=== PATIENT | male | born 1945 | race Caucasian/White ===

== ENCOUNTER 2016-12-03 06:24 | Day surgery (SDC) | payer MEDICARE, OTHER ==
[2016-12-02 10:43] LABS: BASOPHILS 0.5 % (0-2); EOSINOPHILS 2.5 % (0-7); HEMATOCRIT 43.3 % (42.0-54.0); HEMOGLOBIN 14.4 g/dL (13.5-17.5); IMMATURE GRANULOCYTES 0.3 % (0-5); LYMPHOCYTES 23.4 % (15-50); MCH 31.1 pg (26.0-34.0); MCHC 33.3 g/dL (31.0-37.0); MCV 93.5 fL (80.0-100.0); MEAN PLATELET VOLUME 10.4 fL (7.4-10.4); NEUTROPHILS 66.3 % (40-80); PLATELET COUNT 155 10x3/uL (130-400); RBC 4.63 10x6/uL (4.20-6.10); RDW 13.3 % (11.5-14.5); WBC 7.7 10x3/uL (4.8-10.8)
[2016-12-02 11:02] LABS: APTT 28.6 SECONDS (22.8-39.4); INR 1.01 (0.85-1.17); PROTIME 13.1 SECONDS (11.6-15.0)
[2016-12-02 11:10] LABS: CALC OSMOLALITY 288 mosm/kg (275-300); CALCIUM 8.4 mg/dL (8.5-10.1); CARBON DIOXIDE 26.9 mmol/L (21.0-32.0); CHLORIDE - SERUM 107 mmol/L (98-107); GLUCOSE 101 mg/dL (74-106); SODIUM 143 mmol/L (136-145); UREA NITROGEN 25 mg/dL (7-18); eGFR NON AFRICAN AMERICAN 78 mL/min (90-120)
[~2016-12-03] VITALS: Ht 177.8 cm; Wt 106.1 kg
[~2016-12-03 06:24] MED LIST: ASTELIN137 MCG NS; BENICAR HCT 40-1 TAB PO; CIALIS5 MG PO; CIPRO500 MG PO; COUMADIN5 MG PO; DILAUDID4 MG PO; FLOVENT DI50 MCG/DIS INH; FLUTICASONE PRO16 GM NASAL; KLOR-CON M2020 MEQ PO; MIRALAX527 GM PO; NAPROSYN500 MG PO; NORVASC2.5 MG PO; NORVASC5 MG PO; PERCOCET 10/3251 TA1 PO; PRILOSEC20 MG PO; PROAIR HFA8.5 GM INH; SORINE80 MG PO; SYMBICORT 16010.2 GM INH; SYMBICORT 80-10.2 GM INH; TRIMETHOPRIM100 MG PO; ZYLOPRIM100 MG PO
[2016-12-03 07:42] VITALS: BP 120/77; Ht 177.8 cm; Wt 106.1 kg
--- NOTE | 2016-12-04 08:58 | OP ---
PATIENT NAME: PRASHANTH LEIJA MEDICAL RECORD: [id number] :45 LOCATION:D.[facility] ADMISSION DATE: SURGEON: DENNYS OLGUIN MD DATE OF OPERATION: 12/03/2016 SURGEON: Dennys Olguin MD ANESTHESIA: TIVA by Vincent Ball CRNA. PREOPERATIVE DIAGNOSIS: Obstructive benign prostatic hyperplasia, elevated PSA 7.7. POSTOPERATIVE DIAGNOSIS: Obstructive benign prostatic hyperplasia, elevated PSA 7.7. PROCEDURES: Cystoscopy, transrectal ultrasound and prostate biopsy. FINDINGS: On cystoscopy, trilobar hyperplasia of the prostate, which is obstructive. Single ureteral orifices bilaterally. No bladder tumors. Trabeculated bladder. On transrectal ultrasound, 48 gram prostate with no hypoechoic areas. SPECIMENS: Prostate biopsy cores. ESTIMATED BLOOD LOSS: Minimal. CLINICAL HISTORY: This is a 71-year-old male, who has a history of elevated PSA. About 15 years ago, he had a prostate biopsy by Dr. Kimble and was diagnosed with chronic prostatitis. He continues to have an elevated PSA of 7.7 and now he has issues with obstructive voiding symptoms including slow urine flow. We are performing cystoscopy and transrectal ultrasound and prostate biopsy today. HE IS ALLERGIC TO SULFA AND HYDROCODONE. We gave him Levaquin 500 mg IV pension consultant to the OR. DESCRIPTION OF PROCEDURE: The patient was given IV sedation. He was then placed in the dorsal lithotomy position and prepped and draped. A 17-Italian cystoscope with 30-degree lens was used for visualization. Cystoscopic findings are as outlined above. The prostatic lobes, lateral lobes do meet in the midline and they are obstructive. The scope was then removed and the bladder was emptied through the scope sheath. We then placed a transrectal probe into the rectum. Prostate size measurements were obtained and the prostate size was approximately 48 grams. We then took needle biopsies using a 21-gauge biopsy gun. The prostate was divided into 6 sectors with 3 sectors on each side. These are the left and right apical, mid, and base sectors. On each of these sectors at least 3 cores were obtained. Once these specimens were obtained, the procedure was terminated and the patient was awakened and brought to the recovery room. I will see him in 1 week's time to review the pathology with him. TRANSINT:[id number] Voice Confirmation ID: [id number] DOCUMENT ID: [id number] OPERATIVE REPORT [id number] PRASHANTH LEIJA ROBERT S MD at 0858 CC: [id number] DICTATION DATE: 12/03/16 1012 DRYING OVEN ATTENDANT: 12/03/16 1733 [facility] 12/03/16 [id number] [place] [address]
== END 2016-12-03 11:05 | disposition home or self-care (01) ==
LOC: D.OPS 06:24 → D.PAN 09:00 → D.OPS 11:05
PROVIDERS: Anesthesiology
DX: N40.1 Benign prostatic hyperplasia with lower urinary tract symptoms (principal); N13.8 Other obstructive and reflux uropathy; Z01.812 Encounter for preprocedural laboratory examination

== ENCOUNTER → 2017-05-27 08:31 | Outpatient (CLI) | payer MEDICARE, OTHER ==
[2016-12-03 07:42] VITALS: BMI 33.6
== END | disposition home or self-care (01) ==
LOC: D.LABREF 08:31
DX: M17.12 Unilateral primary osteoarthritis, left knee (principal); Z11.8 Encounter for screening for other infectious and parasitic diseases

== ENCOUNTER 2017-06-02 10:00 | Inpatient (IN) | payer MEDICARE, OTHER ==
[~2017-06-02] VITALS: Ht 177.8 cm; Wt 103.2 kg
--- NOTE | ~2017-06-02 | OP ---
PATIENT NAME: PRASHANTH LEIJA MEDICAL RECORD: [id number] :45 LOCATION:D[facility] ADMISSION DATE:06/07/17 SURGEON: ELINA ISLAS MD DATE OF OPERATION: 06/07/2017 PREOPERATIVE DIAGNOSIS: Severe degenerative arthritis of the left knee. POSTOPERATIVE DIAGNOSIS: Severe degenerative arthritis of the left knee. PROCEDURE: Left total knee arthroplasty. SURGEON: Elina Islas MD ANESTHESIA: General. INTRAOPERATIVE COMPLICATIONS: None. SUMMARY OF PATHOLOGIC FINDINGS: Extensive tricompartmental osteoarthritis consistent with the preoperative radiographs. IMPLANTS USED: Sarahi Triathlon total knee arthroplasty, size 6 distal femur, size 6 tibial baseplate, size 6 x 9 polyethylene insert, size 39 mm x 11 symmetric polyethylene, cemented components, Vitagel was used at the end of case. OPERATIVE SUMMARY IN DETAIL: After obtaining the appropriate preoperative orthopedic surgery consent as well as anesthetic consultation, evaluation and clearance, the patient was brought onto the operating table in supine position. After adequate general laryngeal mask was administered, tourniquet was placed about the proximal aspect of the left lower extremity. Left lower extremity was then prepped and draped in routine sterile fashion. The leg was elevated and exsanguinated, tourniquet inflated to 350 mmHg. A midline incision was taken down for paramedian arthrotomy. Patella was everted, distal femur was exposed. Soft tissue excision was done in the usual fashion. Distal intramedullary guide yunior was placed for distal intramedullary guided cuts. Distal femoral cut was made followed by intramedullary guided proximal tibial cut. Proximal tibial cut was made. Measurements were taken and distal femoral chamfer cuts were made. Having completed these trials corresponding to the above-mentioned implants were put into place, taken through range of motion and found to be stable in all planes. Final distal femoral and proximal tibial preparations were then followed by excision of the arthritic surface of the patella. Patella was then made ready for final implantation. The wound was copiously irrigated and dried. Final components were cemented into place. All cement was allowed to harden after all excess cement had been removed, the knee was then taken through range of motion and found to be stable in all planes. The cavity was then sprayed with Vitagel. Paramedian arthrotomy was closed with #2 Ethibond, followed by #1 Vicryl, 2-0 Vicryl, and skin lori. Sterile dressings were applied. The patient was awakened, taken to the recovery in stable condition. All final needle and sponge counts were correct. TRANSINT:[id number] Voice Confirmation ID: [id number] DOCUMENT ID: [id number] OPERATIVE REPORT [id number] PRASHANTH LEIJA MD, ELINA HOLLY at 1307 CC: [id number] DICTATION DATE: 06/07/17 154 PHLEBOTOMY DIRECTOR: 06/07/172041 DIS IN 06/09/17 [address] [place] [address]
[2017-06-02] MEDS ORDERED: ALDACTONE25 MG PO (10:22)
[2017-06-02] MEDS ORDERED: NORVASC5 MG PO (10:23)
[2017-06-02] MEDS ORDERED: FLOMAX0.4 MG PO (10:24)
[2017-06-02] MEDS ORDERED: GEMFIBROZIL600 MG PO (10:25)
[2017-06-02 11:13] LABS: BASOPHILS 0.4 % (0-2); EOSINOPHILS 2.3 % (0-7); HEMATOCRIT 44.8 % (42.0-54.0); HEMOGLOBIN 14.7 g/dL (13.5-17.5); IMMATURE GRANULOCYTES 0.1 % (0-5); MCH 31.4 pg (26.0-34.0); MCHC 32.8 g/dL (31.0-37.0); MCV 95.7 fL (80.0-100.0); MEAN PLATELET VOLUME 10.5 fL (7.4-10.4); MONOCYTES 9.3 % (2-11); NEUTROPHILS 63.9 % (40-80); PLATELET COUNT 159 10x3/uL (130-400); RBC 4.68 10x6/uL (4.20-6.10); RDW 13.2 % (11.5-14.5); WBC 7.4 10x3/uL (4.8-10.8)
[2017-06-02 11:44] LABS: ANION GAP 14.4 mmol/L (8-16); CALCIUM 8.6 mg/dL (8.5-10.1); CARBON DIOXIDE 25.8 mmol/L (21.0-32.0); CREATININE - SERUM 1.2 mg/dL (0.6-1.3); POTASSIUM - SERUM 4.2 mmol/L (3.5-5.1)
[2017-06-02 11:48] LABS: APPEARANCE CLEAR (CLEAR); BILIRUBIN NEGATIVE (NEGATIVE); COLOR YELLOW (YELLOW); EPITHELIAL CELLS 0-5 /hpf (0-5); GLUCOSE NEGATIVE (NEGATIVE); KETONE NEGATIVE (NEGATIVE); NITRITE NEGATIVE (NEGATIVE); PROTEIN NEGATIVE (NEGATIVE); SPECIFIC GRAVITY 1.015 (1.005-1.020); UROBILINOGEN NORMAL (NORMAL)
[2017-06-02 11:50] LABS: APTT 30.4 SECONDS (22.8-39.4); INR 1.02 (0.85-1.17)
[2017-06-02 11:53] LABS: MUCUS <1+ /lpf (NONE SEEN); RED CELLS - URINE 0-5 /hpf (0-5)
[2017-06-02 11:54] LABS: BACTERIA MODERATE /hpf (NONE SEEN)
[2017-06-07] VITALS (7 sets, daily range): BP systolic 118–141; BP diastolic 77–105; Ht 177.8 cm; Wt 103.2 kg
[2017-06-08 04:00] VITALS: BP 130/78
[2017-06-08 05:20] LABS: HEMATOCRIT 38.2 % (42.0-54.0); HEMOGLOBIN 12.4 g/dL (13.5-17.5); MCH 30.8 pg (26.0-34.0); MCHC 32.5 g/dL (31.0-37.0); MCV 94.8 fL (80.0-100.0); MEAN PLATELET VOLUME 10.7 fL (7.4-10.4); RBC 4.03 10x6/uL (4.20-6.10); WBC 10.9 10x3/uL (4.8-10.8)
[2017-06-08 08:30] VITALS: BP 121/75
[2017-06-08 15:40] VITALS: BP 101/63
[2017-06-08 20:00] VITALS: BP 111/64
[2017-06-09 04:00] VITALS: BP 111/74
[2017-06-09 04:32] LABS: HEMATOCRIT 34.4 % (42.0-54.0); HEMOGLOBIN 11.4 g/dL (13.5-17.5); MCHC 33.1 g/dL (31.0-37.0); MCV 93.5 fL (80.0-100.0); MEAN PLATELET VOLUME 10.4 fL (7.4-10.4); RBC 3.68 10x6/uL (4.20-6.10); WBC 10.6 10x3/uL (4.8-10.8)
[2017-06-09] MEDS ORDERED: PERCOCET 10/3251 TA1 PO (07:59)
[2017-06-09] MEDS ORDERED: ELIQUIS2.5 MG PO (08:00)
[2017-06-09 08:28] VITALS: BP 108/69
== END 2017-06-09 15:17 | disposition home or self-care (01) | DRG 470 ==
LOC: D.SDCHOLD 10:00 → D.MS 06-07 16:31 → D.SDCHOLD 06-08 10:30 → D.MS 06-08 10:30
PROVIDERS: Orthopaedic Surgery
PROC: 0SRD0JZ Replacement of Left Knee Joint with Synthetic Substitute, Open Approach (ICD-10-PCS; principal; 2017-06-07 12:15)
DX: M17.12 Unilateral primary osteoarthritis, left knee (principal); I10 Essential (primary) hypertension; K21.9 Gastro-esophageal reflux disease without esophagitis; I48.2 Chronic atrial fibrillation; I34.1 Nonrheumatic mitral (valve) prolapse; Z95.0 Presence of cardiac pacemaker

== ENCOUNTER → 2017-06-03 12:53 | Outpatient (CLI) | payer MEDICARE, OTHER ==
[2016-12-03 07:42] VITALS: BMI 33.6
[~2017-06-03 12:53] MED LIST changes: +ALDACTONE25 MG PO; +FLOMAX0.4 MG PO; +GEMFIBROZIL600 MG PO
== END | disposition home or self-care (01) ==
LOC: D.MAMMO 09:00
DX: N64.4 Mastodynia (principal); N60.01 Solitary cyst of right breast; N60.02 Solitary cyst of left breast

== ENCOUNTER 2017-10-22 08:28 | Outpatient (CLI) | payer MEDICARE, OTHER ==
[~2017-10-22] VITALS: Ht 177.8 cm; Wt 103.6 kg
--- NOTE | ~2017-10-22 | HEMODYNAMI ---
PATIENT:PRASHANTH LEIJA MEDICAL RECORD: [id number] : 45 LOCATION:[facility] ADMISSION DATE: 10/22/17 Generatedon:10/22/201714:15 Patient name: PRASHANTH LEIJA Patient #: [id number] SSN: : 1945 Date of study: 10/22/2017 Page: Of Hemodynamic Procedure Report Patient Data Patient Demographics Procedure consent was obtained First Name: PRASHANTH Gender: Male Last Name: LISS : 1945 [facility] Initial: L Age: 72 year(s) Patient #: [id number] Race: Unknown Additional ID: [id number] Contact details [address]: [address] [place] [address] State: [place] City: [place] Zip code: [address] Past Medical History Allergies Allergen Reaction Date Comments Reported Sulfa drugs 10/22/2017 Other allergy 10/22/2017 hydrocodone Admission Admission Data Admission Date: 10/22/2017 Admission Time: 8:28 Procedure Procedure Types Cath Procedure Diagnostic Procedure LHC LHC w/Coronaries Procedure Description Procedure Date Procedure Date: 10/22/2017 Procedure Start Time: 14:07 Procedure End Time: 14:12 Procedure Staff Name Function Danial Bhakta MD Performing Physician Radha Claros RT Monitor Rivera Delacruz RN Nurse Aye Montelongo RT Scrub Procedure Data Cath Procedure Fluoroscopy Diagnostic fluoroscopy Total fluoroscopy Time: 1 time: 1 min min Diagnostic fluoroscopy Total fluoroscopy dose: 783 dose: 783 mGy mGy Contrast Material Contrast Material Type Amount (ml) Isovue 300 61 Entry Location Entry Primary Successful Side Size Upsize Upsize Entry Closure Davalos ccessful Closure Location (Fr) 1 (Fr) 2 (Fr) Remarks Device Remarks Radial Right 6 Fr Mechanical artery Short Compression Estimated blood loss: 5 ml Diagnostic catheters Device Type Used For End Catheter Placement DIAGNOSTIC [place] 110cm 5 Multi-vessel Fr catheter ([id number]) Angiography Procedure Complications No complications Procedure Medications Medication Administration Route Dosage 0.9% NaCl I.V. 100 ml/hr Oxygen etCO2 Nasal cannula 2 l/min Heparin Flush Bag added to field 2 bags (1000units/500ml NS) Lidocaine 2% added to field 20 Versed I.V. 2 mg Fentanyl I.V. 100 mcg Radial Cocktail I.A. 1 syringe (Verapomil 2mg/Nitro 400mcg/Heparin 1500units) Versed I.V. 1 mg Radial Cocktail added to field 1 syringe (Verapomil 2mg/Nitro 400mcg/Heparin 1500units) Hemodynamics Rest Heart Rate: 60 (bpm) Pressure Samples Time Site Value (mmHg) Purpose Heart Use Rate(bpm) 14:08 LV 66/12,12 Snapshot 60 Snapshots Pre Cath Intra NCS Post Cath Vital Signs Time Heart Resp SPO2 etCO2 NIBP Rhythm Pain Sedation Rate (ipm) (%) (mmHg) (mmHg) Status Level (bpm) 13:31:30 60 18 98 32.9 129/80(97) NSR 0 (11) 10(A) , No pain 13:36:10 61 13 99 0 113/71(85) NSR 0 (11) 10(A) , No pain 13:40:51 60 13 97 19.4 111/65(86) NSR 0 (11) 10(A) , No pain 13:45:32 60 19 96 32.9 111/69(86) NSR 0 (11) 10(A) , No pain 13:50:10 60 17 96 32.9 111/70(86) NSR 0 (11) 10(A) , No pain 13:54:51 60 18 96 32.9 120/73(91) NSR 0 (11) 10(A) , No pain 13:59:31 60 12 96 27.7 112/59(87) NSR 0 (11) 10(A) , No pain 14:04:12 60 12 94 24.7 103/62(85) NSR 0 (11) 10(A) , No pain 14:08:53 60 15 96 35.2 111/57(80) NSR 0 (11) 10(A) , No pain Medications Time Medication Route Dose Verified Delivered Reason Notes Effectiveness by by 13:29:40 0.9% NaCl I.V. 100 Rivera Rivera Per ml/hr Nubia Delacruz physician RN RN 13:29:51 Oxygen etCO2 2 l/min Rivera Rviera Per Nasal Nubia Delacruz physician cannula RN RN 13:30:03 Heparin Flush added 2 bags Rivera Rivera used for Bag to Nubia Delacruz procedure (1000units/500ml field RN RN NS) 13:30:16 Lidocaine 2% added 20ml Rivera Rivera for local to vial Lorigan Nubia anesthetic RN RN 13:30:51 Radial Cocktail added 1 Rivera Rivera used for (Verapomil to syringe Nubia Delacruz procedure 2mg/Nitro field GAN RN 400mcg/Heparin 1500units) 14:03:32 Versed I.V. 2 mg Rivera Rivera for sedation Nubia Delacruz RN RN 14:03:45 Fentanyl I.V. 100 mcg Rivera Rivera for sedation Nubia Delacruz RN RN 14:07:21 Radial Cocktail I.A. 1 Rivera Danial for (Verapomil syringe Lorigan Taurandolph MD vasodilation 2mg/Nitro RN 400mcg/Heparin 1500units) 14:07:29 Versed I.V. 1 mg Rivera Rivera for sedation Nubia Delacruz RN railroad signal technician Log Time Note 13:18:41 Rivera Delacruz RN sent for patient. Start room use. 13:18:41 Time tracking: Regular hours (M-F 7:00 - 5:00) 13:18:45 Plan of Care:Hemodynamics will remain stable., Cardiac rhythm will remain stable., Comfort level will be maintained., Respiratory function will remain adequate., Patient/ family verbilizes understanding of procedure., Procedure tolerated without complication., Recovers from procedure without complications.. 13:19:55 Patient received from Pre/Post Procedure Room to CCL 1 Alert and oriented. Tansferred to table in Supine position. 13:19:56 Warm blankets applied, and sveta hugger turned on for patient comfort. 13:19:56 Correct patient and procedure confirmed by team. 13:19:57 Signed procedure consent form obtained from patient. 13:19:58 ECG and BP/O2 sat monitors applied to patient. 13:19:59 Full Disclosure recording started 13:29:40 0.9% NaCl 100 ml/hr I.V. was administered by Rivera Delacruz RN; Per physician; 13:29:51 Oxygen 2 l/min etCO2 Nasal cannula was administered by Rivera Lorigan RN; Per physician; 13:30:03 Heparin Flush Bag (1000units/500ml NS) 2 bags added to field was administered by Rivera Delacruz RN; used for procedure; 13:30:16 Lidocaine 2% 20ml vial added to field was administered by Rivera Delacruz RN; for local anesthetic; 13:30:36 Vital chart was started 13:30:51 Radial Cocktail (Verapomil 2mg/Nitro 400mcg/Heparin 1500units) 1 syringe added to field was administered by Rivera Delacruz RN; used for procedure; 13:32:15 Baseline sample Acquired. 13:32:20 Rhythm: paced 13:32:28 H&P Date Dictated: 10/12/2017 Within 30 days and on chart., H&P Addendum completed by physician on day of procedure. (MUST COMPLETE FOR ALL OUTPATIENTS). 13:32:30 Pre-procedure instructions explained to patient. 13:32:30 Pre-op teaching completed and patient verbalized understanding. 13:32:55 Family in patients room. 13:32:56 Patient NPO since Midnight. 13:33:06 Patient allergic to Sulfa drugs 13:33:18 Patient allergic to Other allergyhydrocodone 13:34:01 Is the patient allergic to Iodine/contrast media? No. 13:34:03 Was the patient premedicated? No 13:34:05 Is patient on blood thinner?Yes 13:34:09 ACC The patient was administered the following blood thiners within the last 24 hours: ACCPlavix 13:34:11 Patient diabetic? No. 13:34:14 Previous problem with sedation/anesthesia? No ? 13:34:15 Snore? Yes 13:34:16 Sleep apnea? Yes 13:34:17 Deviated septum? No 13:34:18 Opens mouth fully? Yes 13:34:19 Sticks out tongue? Yes 13:34:25 Airway obstruction? Yes asthma 13:34:29 Dentures? No ? 13:34:32 Pre procedure: right dorsailis pedis pulse 2+ Normal; easily identifiable; not easily obliterated 13:34:35 Pre procedure: left dorsailis pedis pulse 2+ Normal; easily identifiable; not easily obliterated 13:34:37 Patient pain scale 0/10 ?. 13:34:53 IV patent on arrival in left forearm with 0.9% NaCl at KVO. 13:34:56 Lab results completed and on chart. 13:35:02 Right Radial area was prepped with chlora-prep and draped in sterile fashion 13:35:04 Alarms reviewed by R. N. 13:35:04 Sharps counted by scrub and verified by R.N. 14:02:57 Physician arrived 14::58 --------ALL STOP TIME OUT------ 14::58 Final Timeout: patient, procedure, and site verified with staff and physician. All members of the team are in agreement. 14:03:03 Right Radial & Right Groin site verified by team. 14:03:05 Physical assessment completed. ASA score P 2 - A patient with mild systemic disease as per Danial Bhakta MD. 14:03:09 Sedation plan: IV Moderate Sedation Medication:Versed, Fentanyl 14:03:32 Versed 2 mg I.V. was administered by Rivera Delacruz RN; for sedation; 14:03:34 Use device set Radial Dx or PCI 14:03:35 ACIST Syringe (46031) opened to sterile field. 14:03:35 Medline Cath Pack ([id number]) opened to sterile field. 14:03:35 Bag Decanter (2002S) opened to sterile field. 14:03:36 DIAGNOSTIC WIRE .035 260cm J wire (405374) opened to sterile field. 14:03:36 ACIST Hand Control (03264) opened to sterile field. 14:03:37 ACIST Manifold (93899) opened to sterile field. 14:03:37 Tegaderm 4 x 4 (1626W) opened to sterile field. 14:03:39 SHEATH 6Fr Prelude Radial ([id number]) opened to sterile field. 14:03:41 MBrace Wrist Support ([id number]) opened to sterile field. 14:03:45 Fentanyl 100 mcg I.V. was administered by Rivera Delacruz RN; for sedation; 14:07:06 Procedure started. 14:07:15 Local anesthetic to right radial artery with Lidocaine 2% by Danial Bhakta MD.INITIAL ACCESS ONLY 14:07:21 Radial Cocktail (Verapomil 2mg/Nitro 400mcg/Heparin 1500units) 1 syringe I.A. was administered by Danial Bhakta MD; for vasodilation; 14:07:26 A 6 Fr Short sheath was inserted into the Right Radial artery 14:07:29 Versed 1 mg I.V. was administered by Rivera Delacruz RN; for sedation; 14:07:43 A DIAGNOSTIC [place] 110cm 5 Fr catheter (843011) was advanced over the wire and used for Multi-vessel Angiography. 14:08:44 LV hemodynamics recorded. 14:08:45 LV gram done using CRONIN 14:08:48 Injector settings: Ml/sec: 5, Volume: 15, 14:08:54 EF : 60 % 14:09:13 LCA angiography performed. 14:09:17 Injector settings: Ml/sec: 3, Volume: 6, 14:10:43 RCA angiography performed. 14:10:56 Injector settings: Ml/sec: 3, Volume: 6, 14:11:09 Catheter removed. 14:11:12 TR BAND Large ([id number]) opened to sterile field. 14:11:22 Sheath removed intact; hemostasis achieved with Mechanical Compression to the Right Radial artery. 14:11:24 Procedure ended.(Physican Out) 14:11:59 Fluoroscopy time 01.00 minutes. 14:12:04 Fluoroscopy dose: 783 mGy 14:12:04 Flurop Dose total: 783 14:12:08 Contrast amount:Isovue 300 61ml. 14:12:10 Sharps counted by scrub and verified by R.N. 14:12:10 Insertion/operative site no bleeding no hematoma. 14:12:15 TR band inflated with 11cc of air. 14:12:25 Post right radial artery:stable 14:12:27 Post Procedure Pulses reassessed and unchanged 14:12:30 Post procedure rhythm: unchanged. 14:12:32 Estimated blood loss: 5 ml 14:12:34 Post procedure instruction explained to patient.Patient verbalizes understanding. 14:12:35 Patient needs reinforcement of post procedure teaching. 14:12:43 Procedure and supply charges have been captured, reviewed, submitted and are correct. 14:12:48 Procedure Complication : No complications 14:12:51 Vital chart was stopped 14:12:51 See physician's report for complete and final results. 14:12:54 Report given to Pre/Post Procedure Room. 14:12:56 Patient transfered to Pre/Post Procedure Room with Stretcher. 14:12:59 Procedure ended. 14:12:59 Full Disclosure recording stopped 14:13:03 End room use (Document Last) Device Usage Item Name Manufacture Quantity Catalog Number Hospital Part Current M inimal Lot# / Charge Number Stock Stock Serial# Code ACIST Syringe Acist 1 25671 053306 464637 700352 2 0 (94323) Medical Systems Inc Medline Cath Cardinal 1 [id number] 078065 96239 551909 5 Pack Health ([id number]) Bag Decanter Microtek 1 2001S 292561 52866 735007 5 (2001S) Medical Inc. DIAGNOSTIC WIRE St Nri 1 482757 643380 812197 980709 3 0 .035 260cm J wire (812693) ACIST Hand Acist 1 84935 126531 050538 602619 5 Control (84448) Medical Systems Inc ACIST Manifold Acist 1 23133 212256 375079 675602 5 (77203) Medical Systems Inc Tegaderm 4 x 4 3M 1 1626W 454798 950813 478044 5 (1626W) SHEATH 6Fr Merit 1 [id number] 317957 468195 119445 5 Prelude Radial Medical ([id number]) MBrace Wrist Advanced 1 140-0250-00 403742 07477 710904 5 Support Vascular ([id number]) Dynamics DIAGNOSTIC Terumo 1 75-9936 990396 839099 038634 5 [place] 110cm 5 Fr catheter (250772) TR BAND Large Terumo 1 [id number] 230489 527133 804517 4 0 ([id number]) Signature Audit [place] Stage Time Signature Unsigned Intra-Procedure 10/22/2017 Radha Claros 2:15:33 PM RT(R) Signatures Monitor : Radha Claros RT Signature : Date : Time : [facility] [address] [place] [address]
--- NOTE | ~2017-10-22 | OP ---
PATIENT NAME: PRASHANTH LEIJA MEDICAL RECORD: [id number] :45 LOCATION:D.[facility] ADMISSION DATE: SURGEON: RAHEEL VELAZQUEZ MD DATE OF OPERATION: 10/22/2017 PROCEDURES: 1. Left heart catheterization. 2. Selective coronary angiography. 3. Left ventriculogram. INDICATION: Angina and coronary artery disease. PROCEDURE IN DETAIL: After informed consent was obtained and after a detailed description of the risks, benefits as well as alternative therapies, the patient elected to proceed with angiogram and heart catheterization. The right radial area was prepped and draped in normal sterile fashion. Right radial artery was cannulated via modified Seldinger technique with placement of 6-Gibraltarian sheath. All catheters exchanged through this sheath. FINDINGS: The left ventriculogram was performed in a standard 30-degree CRONIN view, reveals good cardiac wall motion throughout all segments. Overall ejection fraction estimated 60%. SELECTIVE CORONARY ANGIOGRAPHY: Left main, left anterior descending, left circumflex, and right coronary artery are all smooth-walled vessels with no angiographic evidence of coronary artery disease. OVERALL IMPRESSION: No significant coronary artery disease is present. Normal LV function, normal left ventricular systolic function. Chest pain is noncardiac in etiology. TRANSINT:[id number] Voice Confirmation ID: [id number] DOCUMENT ID: [id number] RAHEEL VELAZQUEZ MD at 2001 CC: [id number] DICTATION DATE: 10/22/17 1414 YOGHURT MAKER: 10/22/17 1421 DEP CLI 10/22/17 [id number]
[~2017-10-22 08:28] MED LIST changes: +ELIQUIS2.5 MG PO
[2017-10-22] MEDS ORDERED: PROSCAR5 MG PO (09:54)
[2017-10-22] MEDS ORDERED: PLAVIX75 MG PO (09:54)
[2017-10-22 10:07] LABS: BASOPHILS 0.5 % (0-2); EOSINOPHILS 2.3 % (0-7); HEMATOCRIT 43.1 % (42.0-54.0); HEMOGLOBIN 14.3 g/dL (13.5-17.5); IMMATURE GRANULOCYTES 0.3 % (0-5); LYMPHOCYTES 26.6 % (15-50); MCHC 33.2 g/dL (31.0-37.0); MCV 93.5 fL (80.0-100.0); MEAN PLATELET VOLUME 10.2 fL (7.4-10.4); MONOCYTES 9.2 % (2-11); NEUTROPHILS 61.1 % (40-80); PLATELET COUNT 146 10x3/uL (130-400); RBC 4.61 10x6/uL (4.20-6.10); WBC 6.1 10x3/uL (4.8-10.8)
[2017-10-22 10:08] VITALS: BP 125/77; Ht 177.8 cm; Wt 103.6 kg
[2017-10-22 10:15] LABS: ANION GAP 11.7 mmol/L (8-16); CARBON DIOXIDE 26.5 mmol/L (21.0-32.0); CREATININE - SERUM 1.1 mg/dL (0.6-1.3); POTASSIUM - SERUM 4.2 mmol/L (3.5-5.1)
== END 2017-10-22 16:20 | disposition home or self-care (01) ==
LOC: D.CATH 08:28
PROVIDERS: Internal Medicine Interventional Cardiology
DX: I25.119 Atherosclerotic heart disease of native coronary artery with unspecified angina pectoris (principal); I48.91 Unspecified atrial fibrillation; Z95.0 Presence of cardiac pacemaker; R07.9 Chest pain, unspecified; R06.02 Shortness of breath; I10 Essential (primary) hypertension; J44.9 Chronic obstructive pulmonary disease, unspecified; Z01.812 Encounter for preprocedural laboratory examination

== ENCOUNTER 2018-04-12 05:45 | Day surgery (SDC) | payer MEDICARE, OTHER ==
[2018-04-11 13:08] LABS: HEMOGLOBIN 14.4 g/dL (13.5-17.5); MCH 31.1 pg (26.0-34.0); MCHC 32.7 g/dL (31.0-37.0); MEAN PLATELET VOLUME 10.2 fL (7.4-10.4); RBC 4.63 10x6/uL (4.20-6.10); WBC 7.4 10x3/uL (4.8-10.8)
[2018-04-11 13:16] LABS: ANION GAP 14.6 mmol/L (8-16); CALCIUM 8.5 mg/dL (8.5-10.1); CARBON DIOXIDE 24.5 mmol/L (21.0-32.0); CREATININE - SERUM 1.3 mg/dL (0.6-1.3); POTASSIUM - SERUM 4.1 mmol/L (3.5-5.1)
[~2018-04-12] VITALS: Ht 177.8 cm; Wt 103.4 kg
--- NOTE | ~2018-04-12 | OP ---
PATIENT NAME: PRASHANTH LEIJA MEDICAL RECORD: [id number] :45 LOCATION:D.[facility] ADMISSION DATE: SURGEON: DENNYS OLGUIN MD DATE OF OPERATION: 04/12/2018 SURGEON: Dr. Dennys Olguin ANESTHESIA: TIVA by Dr. David Harvey. DIAGNOSIS: Obstructive BPH. PROCEDURES: Cystoscopy and UroLift implants times 4. FINDINGS: Bilateral lateral lobe hyperplasia 48 gram prostate. IPSS equals 20 and quality of life score equals 3. BLOOD LOSS: None. CLINICAL HISTORY: This is a 72-year-old male, who had an elevated PSA level of 7.7. He has had a transrectal ultrasound, which showed that his prostate was 48 grams. Biopsy of the prostate was benign with some inflammation. Cystoscopy showed trilobar hyperplasia of the prostate. He has been on finasteride and tamsulosin for over 1 year, and he has significant issues with voiding. In the daytime, he has to void every 2 hours. IPSS score is 20, quality of life is 3. He is eager to have UroLift done to stop taking BPH medications. HE IS ALLERGIC TO HYDROCODONE AND SULFA. He was given Ancef consumer loan manager to the OR. DESCRIPTION OF PROCEDURE: The patient was given IV sedation. Lidocaine jelly was inserted into the urethra. The UroLift scope was then inserted using the obturator. Cystoscopy was as outlined above. We then landmarked to about 2 cm distal to the bladder neck. In the anterior lateral lobe, we inserted the UroLift implant. This was done on each side. We then landmarked to the verumontanum and inserted 2 more UroLift units here, 1 on each side. At the end of the procedure, the urethral channel was completely open. The bladder was emptied through the cystoscope sheath and then the patient was brought back to the preoperative holding area. TRANSINT:[id number] Voice Confirmation ID: [id number] DOCUMENT ID: [id number] DENNYS OLGUIN MD at 0847 CC: [id number] DICTATION DATE: 04/12/18828 ELECTRONIC WARFARE TECHNICIAN: 04/12/18 2336 [facility] 04/12/18 [place] [address]
[~2018-04-12 05:45] MED LIST changes: +PLAVIX75 MG PO; +PROSCAR5 MG PO
[2018-04-12] MEDS ORDERED: ALDACTONE25 MG PO (06:10)
[2018-04-12 06:11] VITALS: BP 107/67; Ht 177.8 cm; Wt 103.4 kg
== END 2018-04-12 09:20 | disposition home or self-care (01) ==
LOC: D.OPS 05:45 → D.PAN 08:30 → D.OPS 09:00 → D.PAN 09:45 → D.OPS 09:45
PROVIDERS: Anesthesiology
DX: N40.1 Benign prostatic hyperplasia with lower urinary tract symptoms (principal); N13.8 Other obstructive and reflux uropathy; Z88.5 Allergy status to narcotic agent; Z88.2 Allergy status to sulfonamides; Z01.812 Encounter for preprocedural laboratory examination